=== PATIENT | male | born 1990 | race African-American/Black ===

== ENCOUNTER → 2022-03-02 12:50 | Outpatient (BNVA) | payer OTHER, SELFPAY | PROVIDERS: PCP Podiatrist Foot & Ankle Surgery; Visit Provider Nurse Practitioner Family | DX: S92.11 Fracture of neck of talus (principal); M25.571 Pain in right ankle and joints of right foot; G57.91 Unspecified mononeuropathy of right lower limb | CPT/HCPCS: 99202 ==

== ENCOUNTER → 2022-04-10 14:08 | Outpatient (BNVA) | payer OTHER, SELFPAY | PROVIDERS: PCP Podiatrist Foot & Ankle Surgery; Visit Provider Nurse Practitioner Family | DX: S92.11 Fracture of neck of talus (principal); G57.91 Unspecified mononeuropathy of right lower limb; M25.571 Pain in right ankle and joints of right foot | CPT/HCPCS: 99212 ==

== ENCOUNTER → 2022-06-05 15:03 | Outpatient (BNVA) | payer OTHER, SELFPAY | PROVIDERS: PCP Podiatrist Foot & Ankle Surgery; Visit Provider Nurse Practitioner Family | DX: M25.571 Pain in right ankle and joints of right foot (principal); S92.11 Fracture of neck of talus; G57.91 Unspecified mononeuropathy of right lower limb | CPT/HCPCS: 99212 ==

== ENCOUNTER 2022-06-14 11:25 | Outpatient (REF) | payer OTHER, SELFPAY ==
--- NOTE | 2022-06-14 08:45 | EMG_ITS ---
Right tibial and peroneal motor studies were performed. Right superficial peroneal, sural, and medial and lateral plantar sensory studies were performed. Tibial H-reflex was obtained. Needle examination was performed. 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 There was no definite evidence of radiculopathy. MD GLENYS Kerr/DORIS / [id number]
== END 2022-06-14 11:26 | disposition home or self-care (01) ==
LOC: HO.NEURO 11:25
PROVIDERS: Visit Provider Nurse Practitioner Family
DX: G57.91 Unspecified mononeuropathy of right lower limb (principal); M25.571 Pain in right ankle and joints of right foot
CPT/HCPCS: 95886; 95910

== ENCOUNTER → 2022-06-28 13:27 | Outpatient (BNVA) | payer OTHER, SELFPAY | PROVIDERS: PCP Podiatrist Foot & Ankle Surgery; Visit Provider Nurse Practitioner Family | DX: G57.91 Unspecified mononeuropathy of right lower limb (principal); M25.571 Pain in right ankle and joints of right foot; S92.11 Fracture of neck of talus | CPT/HCPCS: 99212 ==

== ENCOUNTER → 2022-07-27 13:39 | Outpatient (BNVA) | payer OTHER, SELFPAY | PROVIDERS: PCP Podiatrist Foot & Ankle Surgery; Visit Provider Nurse Practitioner Family | DX: Z13.89 Encounter for screening for other disorder (principal) ==

== ENCOUNTER 2022-11-27 09:10 | Outpatient (AMB) | payer OTHER, SELFPAY ==
--- NOTE | 2022-11-27 09:11 | A.OFFVIS_ITS ---
Intake Vital Signs 11/27/22 09:14 Height 6 ft 4 in Weight 208 lb 3 oz BMI 25.3 BP 140/86 H Blood Pressure Location Rt brachial Position Sitting Pulse 88 Pulse Source Pulse Oximeter Pulse Oximetry (%) 97 Oxygen Delivery Method Room Air Intake Visit Reasons: Follow Up/CRPS Intake Note: Pain today 07/13. Senior Research Fellow Required: No Accompanied by: machine molder squeeze Allergies No Known Allergies Allergy (Verified 11/27/22 09:15) HPI HPI Comments History of Present Illness Details Patient presents today for follow up for chronic right ankle pain. Patient reports ongoing sharp pain around his right ankle with walking, weightbearing or stepping down on uneven surfaces. Patient was scheduled to receive cortisone injection at Rheumatology office last month. Unfortunately this was not done due to provider change and was rescheduled for January. We discussed lumbar sympathetic nerve block for diagnostic purposes prior to consideration for SCS trial. Denies any recent cough, cold, infection, fever or other significant changes in medical history since last office visit. PRIOR: Patient presents today via telehealth encounter to follow up for medication review. Patient reports no significant pain relief since restarting gabapentin 100 mg TID. He reports drowsiness with gabapentin during daytime and prefers to continue this during bedtime only. Patient continues to endorse right ankle pain and localized incisional site tenderness with walking, prolonged standing or doing his daily functions and activities. Patient continues to apply topical compound cream with mild relief. Patient is willing to undergo steroidal injection for his right ankle pain through [facility]. If he gains no significant relief with therapeutic injections, we will proceed with neuromodulation with SCS trial for a longer term pain relief. Patient continues to stay active with physical therapy and home exercise program. He has paused PT for previous week due to undergoing vasectomy. Denies any recent cough, cold, infection, fever or other significant changes in medical history since last office visit. PRIOR: Patient is a pleasant 31 years old male who presents with right ankle pain that he attributes to work related injury on 11/21/21 where he had his leg rolled over by a skid steer tractor and have undergone right foot and ankle surgery for closed nondisplaced fracture of neck of right talus and continues to present with symptoms of injury sequelae. 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 Subsequent MRI was concerning for necrosis of the talus performed early last year with foot and ankle surgeon in [place]. After his decompression surgery of the ankle joint, the patient reports he was immobile for 3 months. Patient recently moved to [place] and has been followed by podiatry surgeon, Dr. Dang who referred patient to our office for potential treatment of complex regional pain syndrome. Per referral notes, most recent MRI study findings showed no signs of avascular necrosis, no acute fracture and mild thinning of tibiotalar articulating cartilage. Full MRI report is not available for review today. We will send a request for a complete MRI report to evaluate for any tissue changes typical of CRPS. Patient denies any fever, weight changes, joint swelling, muscle pain, back pain, rash, itching, skin color changes, hyperalgesia, bowel or bladder incontinence, or saddle anesthesia. Patient reports his right ankle pain is reproducible with weight bearing and cold weather changes. He rates his average pain at 3-4/10. Pain is described as intermittent aching, stabbing, sharp, tingling, pins and needles, shooting and dullness. He presents with localized pain, numbness and tingling upon weight bearing or prolonged standing in the projection of medial malleolus and talus. Patient reports RLE weakness and severe pain with prolonged walking with occasional tripping and falling. Pain relieved with rest and elevation. Patient has intact pulses and capillary refills bilaterally, no edema. Denies skin color or texture changes, sweating of right ankle or foot, stiffness, localized hyperalgesia or allodynia. No temperature differences between bilateral lower extremities. Patient demonstrates 5/5 strength of quadriceps bilaterally as well as flexion/dorsiflexion of bilateral feet against resistance with mild decreased ROM of right ankle with dorsiflexion. No redness or tenderness noted in the projection of the healed scar and its surrounding area. Patient reports pain has been affecting his daily activities, walking, social interactions and quality of life. Denies difficulty sleeping or maintaining sleep. Patient reports PT was helpful while living in [place] and more recently he has been using compound topical cream with partial relief of pain. Patient denies previous cortisone injections, Tylenol, NSAIDs, TENS unit or orthotics. He reports a past history of opioid addiction and avoids taking oral medications for this reason. Patient is wearing tight fitting pro keds style shoes of his regular size in both feet. Ambulates with mildly antalgic gait with slight limping without assistive devices. Patient reports he remains out of work due to significant pain with weight bearing. He does not drive due to chronic right ankle pain and weakness with dorsiflexion. [facility] Medical History Closed nondisplaced fracture of neck of talus Right ankle pain Social History Alcohol intake: never Patient Tobacco Use Status: Never used Tobacco Review of Systems Const All systems reviewed & are unremarkable except as noted in HPI and below Physical Exam General: Appears afebrile. Alert and oriented. Mood and affect appropriate. Follows and participates in conversation appropriately. Respiratory effort is unlabored. Able to transition from sit to stand unassisted. Ambulates with bilaterally normal heel strike and toe off, except decreased dorsiflexion on right. Right foot: Full ROM with pain in pronation and supination, decreased dorsiflexion on the right. Intact pulses and capillary refills bilaterally, no edema, no redness, no swelling. Localized tenderness on palpation in the medial aspect of right ankle. 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 Continue home exercise program for maintaining ROM, flexibility, strength and decreasing pain and stiffness. 2. Pending cortisone injection at Rheumatology office in January for chronic right ankle pain. If patient gains no significant relief with therapeutic injections, we will proceed with Lumbar Sympathetic block for consideration of SCS trial for a longer term pain relief. 3. Provided excuse from work while he awaits trial of therapeutic injections at Rheumatology.?All questions were answered and patient agreed with the plan. Follow up after injections and sooner if needed. 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
[2022-11-27 09:14] VITALS: BP 140/86; PULSE 88; O2SAT 97; BMI 25.3
== END 2022-11-27 09:20 | disposition home or self-care (01) ==
PROVIDERS: PCP Podiatrist Foot & Ankle Surgery; Visit Provider Nurse Practitioner Family
DX: M25.571 Pain in right ankle and joints of right foot (principal); G57.91 Unspecified mononeuropathy of right lower limb; S92.11 Fracture of neck of talus
CPT/HCPCS: 99214

== ENCOUNTER → 2022-11-27 09:10 | Outpatient (BNVA) | payer OTHER, SELFPAY | PROVIDERS: PCP Podiatrist Foot & Ankle Surgery; Visit Provider Nurse Practitioner Family | DX: M25.571 Pain in right ankle and joints of right foot (principal); G57.91 Unspecified mononeuropathy of right lower limb | CPT/HCPCS: 99212 ==

== ENCOUNTER → 2023-01-22 08:01 | Outpatient (BNVA) | payer OTHER, SELFPAY | PROVIDERS: Visit Provider Student in an Organized Health Care Education/Training Program ==

== ENCOUNTER → 2023-01-24 09:53 | Outpatient (BNVA) | payer OTHER, SELFPAY | PROVIDERS: PCP Podiatrist Foot & Ankle Surgery; Visit Provider Nurse Practitioner Family ==

== ENCOUNTER 2023-02-21 08:04 | Outpatient (AMB) | payer OTHER, SELFPAY ==
--- NOTE | 2023-02-21 08:04 | MHC.OFFVIS ---
Intake Vital Signs 02/21/23 08:05 Height 6 ft 4 in Weight 236 lb 12.423 oz BMI 28.8 BP 124/90 H Blood Pressure Location Lt brachial Position Sitting Pulse 105 H Pulse Source Pulse Oximeter Temp 97.4 F Temp Source Skin Pulse Oximetry (%) 99 Oxygen Delivery Method Room Air Intake Visit Reasons: Rt Ankle Pain/injection Intake Note: New patient here today for right ankle pain and injection. Workers comp case. Master Automotive Glass Technician Required: No Accompanied by: and Nurse Allergies No Known Allergies Allergy (Verified 02/21/23 08:08) HPI HPI Comments History of Present Illness Details Patient presents for injection of the right ankle. He has pains in the ankle and foot thought to be due to her complex regional pain disorder. This followed a injury about 2 years ago. Imaging has shown some evidence for some osteoarthritis. He has had no previous corticosteroid injections or previous exposure to corticosteroids. [facility] Medical History (Updated 02/21/23 @ 08:55 by Chris Mckeon MD) Right ankle pain Closed nondisplaced fracture of neck of talus Surgical History History of ankle surgery History of surgery Family History (Updated 02/21/23 @ 08:08 by SALMA Snow) Mother No problems noted. Father Prostate cancer Heart disease Social History Household Members: Spouse and Children Alcohol intake: current Alcohol intake frequency: holidays/special occasions only Patient Tobacco Use Status: Never used Tobacco Current occupational status: unemployed Review of Systems Const Details: Negative for appetite change, weight change, fever, chills, malaise and fatigue Skin/Breast Details: Negative for itching, rash, hives, Raynaud's symptoms, sun sensitivity, and skin cancer Endo Details: Negative for polyuria and polydypsia Javon/Lymph Details: Negative for excessive bruising or bleeding. Physical Exam Vital Signs: Last Vital Signs Temp 97.4 F 02/21/23 08:05 Pulse 105 H 02/21/23 08:05 BP 124/90 H 02/21/23 08:05 Pulse Ox 99 02/21/23 08:05 Oxygen Delivery Method Room Air 02/21/23 08:05 BMI result Body Mass Index 28.8 APPEARANCE: Patient in no acute distress Right foot and ankle: No pain with range of motion. Slight anterior tenderness. No bruising or redness. ? Office Procedures Joint Injection/Drain Joint Injection/Drain Primary Site: right ankle Injected: 40 mg of, Kenalog, with 1 mL of and 1% plain lidocaine Coding Details: With the patient's consent the right ankle was prepped with ChloraPrep and alcohol. The skin over the anterior ankle was sprayed with ethyl chloride and the soft tissues were anesthetized with 2 cc of 1% lidocaine. The right ankle was then injected via an anterior approach with 40 mg of triamcinolone and 1 cc of I % lidocaine. The patient tolerated the procedure with no immediate adverse effects. - Large joint Procedure code (CPT) selection complete Assessment & Plan Assessment & Plan (1) Osteoarthritis of ankle, right: Code(s): M19.071 - Primary osteoarthritis, right ankle and foot Qualifiers: Osteoarthritis type: post-traumatic Qualified Code(s): M19.171 - Post-traumatic osteoarthritis, right ankle and foot Plan With the patient's consent the right ankle was prepped with ChloraPrep and alcohol. The skin over the anterior ankle was sprayed with ethyl chloride and the soft tissues were anesthetized with 2 cc of 1% lidocaine. The right ankle was then injected via an anterior approach with 40 mg of triamcinolone and 1 cc of I % lidocaine. The patient tolerated the procedure with no immediate adverse effects. He should rest the ankle for the next 48 hours. Any excess symptoms can be managed with topical ice to the area. He will follow-up as planned with pain management. Orders: Orders AMB Joint Injection/Aspiration Today M19.071 - Primary osteoarthritis, right ankle and foot Coding Level of Care Code Procedure Only Diagnoses Post-traumatic osteoarthritis of right ankle M19.171 Osteoarthritis type: post-traumatic CPT Codes Coding - Large joint: 88188 - Large joint ([id number])
[2023-02-21 08:05] VITALS: BP 124/90; PULSE 105; TEMP 36.3; O2SAT 99; BMI 28.8
== END 2023-02-21 08:31 | disposition home or self-care (01) ==
PROVIDERS: PCP Podiatrist Foot & Ankle Surgery; Visit Provider Internal Medicine Rheumatology
DX: M19.171 Post-traumatic osteoarthritis, right ankle and foot (principal)
CPT/HCPCS: 20605

== ENCOUNTER → 2023-02-21 08:04 | Outpatient (BNVA) | payer OTHER, SELFPAY | PROVIDERS: PCP Podiatrist Foot & Ankle Surgery; Visit Provider Internal Medicine Rheumatology | DX: M19.171 Post-traumatic osteoarthritis, right ankle and foot (principal) | CPT/HCPCS: 20605; J3301 ==

== ENCOUNTER 2023-03-22 09:02 | Outpatient (AMB) | payer OTHER, SELFPAY ==
--- NOTE | 2023-03-22 09:04 | A.OFFVIS_ITS ---
Intake Vital Signs 3 03/22/23 09:07 Height 6 ft 4 in Weight 237 lb BMI 28.8 BP 142/86 H Blood Pressure Location Rt brachial Position Sitting Pulse 95 Pulse Source Pulse Oximeter Pulse Oximetry (%) 97 Oxygen Delivery Method Room Air Intake Visit Reasons: 4 WEEK FOLLOW UP AFTER ANKLE INJ/CONFIRMED Intake Note: Pain today 07/13 On Air Talent Required: No Accompanied by: Self / Same As Patient Allergies No Known Allergies Allergy (Verified 03/22/23 09:08) HPI HPI Comments 2 History of Present Illness0 Details Patient presents today for follow up status post therapeutic right ankle pain. Patient received 40 mg of triamcinolone and 1 cc of 1% lidocaine on 02/21/23 at Rheumatology office. Patient reports no pain relief since injection. He continues to report sharp and throbbing pain around his right ankle with walking and weight bearing. He occasionally gets tingling sensations in right ankle and has tried gabapentin but this caused him significant drowsiness on a 100 mg TID dose and even tried only 100 mg at bedtime with continued drowsiness. Physical therapy improved his range of motion but not pain symptoms. He continues to endorse more neuropathic than arthritic pain. 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 Denies any recent cough, cold, infection, fever or other significant changes in medical history since last office visit. Past Procedures: 02/21/23: Right ankle steroid injection- 0% pain relief PRIOR: Patient is a pleasant 31 years old male who presents with right ankle pain that he attributes to work related injury on 11/21/21 where he had his leg rolled over by a skid steer tractor and have undergone right foot and ankle surgery for closed nondisplaced fracture of neck of right talus and continues to present with symptoms of injury sequelae. This is Workers Comp case #[id number] and patient presents with his case management social worker Irena Wright from [employer] phone fax . Subsequent MRI was concerning for necrosis of the talus performed early last year with foot and ankle surgeon in [place]. After his decompression surgery of the ankle joint, the patient reports he was immobile for 3 months. Patient recently moved to [place] and has been followed by podiatry surgeon, Dr. Dang who referred patient to our office for potential treatment of complex regional pain syndrome. Per referral notes, most recent MRI study findings showed no signs of avascular necrosis, no acute fracture and mild thinning of tibiotalar articulating cartilage. Full MRI report is not available for review today. We will send a request for a complete MRI report to evaluate for any tissue changes typical of CRPS. Patient denies any fever, weight changes, joint swelling, muscle pain, back pain, rash, itching, skin color changes, hyperalgesia, bowel or bladder incontinence, or saddle anesthesia. Patient reports his right ankle pain is reproducible with weight bearing and cold weather changes. He rates his average pain at 3-4/10. Pain is described as intermittent aching, stabbing, sharp, tingling, pins and needles, shooting and dullness. He presents with localized pain, numbness and tingling upon weight bearing or prolonged standing in the projection of medial malleolus and talus. Patient reports RLE weakness and severe pain with prolonged walking with occasional tripping and falling. Pain relieved with rest and elevation. Patient has intact pulses and capillary refills bilaterally, no edema. Denies skin color or texture changes, sweating of right ankle or foot, stiffness, localized hyperalgesia or allodynia. No temperature differences between bilateral lower extremities. Patient demonstrates 5/5 strength of quadriceps bilaterally as well as flexion/dorsiflexion of bilateral feet against resistance with mild decreased ROM of right ankle with dorsiflexion. No redness or tenderness noted in the projection of the healed scar and its surrounding area. Patient reports pain has been affecting his daily activities, walking, social interactions and quality of life. Denies difficulty sleeping or maintaining sleep. Patient reports PT was helpful while living in [place] and more recently he has been using compound topical cream with partial relief of pain. Patient denies previous cortisone injections, Tylenol, NSAIDs, TENS unit or orthotics. He reports a past history of opioid addiction and avoids taking oral medications for this reason. Patient is wearing tight fitting pro keds style shoes of his regular size in both feet. Ambulates with mildly antalgic gait with slight limping without assistive devices. Patient reports he remains out of work due to significant pain with weight bearing. He does not drive due to chronic right ankle pain and weakness with dorsiflexion. [facility] Medical History Right ankle pain Closed nondisplaced fracture of neck of talus Surgical History History of ankle surgery History of surgery Family History Mother No problems noted. Father Prostate cancer Heart disease Social History Household Members: Spouse and Children Alcohol intake: current Alcohol intake frequency: holidays/special occasions only Patient Tobacco Use Status: Never used Tobacco Current occupational status: unemployed Review of Systems Const All systems reviewed & are unremarkable except as noted in HPI and below Physical Exam Vital Signs: Last Vital Signs Pulse 95 03/22/23 09:07 BP 142/86 H 03/22/23 09:07 Pulse Ox 97 03/22/23 09:07 Oxygen Delivery Method Room Air 03/22/23 09:07 BMI result Body Mass Index 28.8 General: Appears afebrile. Alert and oriented. Mood and affect appropriate. Follows and participates in conversation appropriately. Respiratory effort is unlabored. Able to transition from sit to stand unassisted. Ambulates with bilaterally normal heel strike and toe off, except decreased dorsiflexion on right. Right foot: Full ROM with mild pain in pronation and supination, decreased dorsiflexion on the right. Intact pulses and capillary refills bilaterally, no edema, no redness, no swelling, no skin color changes. Localized tenderness and mild allodynia on palpation in the medial and anterior aspect of right ankle. Results Reviewed Results Reviewed: IMPRESSION: This study revealed mild sensory motor peripheral neuropathy with no particular separate pathology around ankle. There was no definite evidence of radiculopathy. Assessment & Plan Assessment & Plan (1) Right ankle pain: Code(s): M25.571 - Pain in right ankle and joints of right foot Qualifiers: Chronicity: chronic Qualified Code(s): M25.571 - Pain in right ankle and joints of right foot; G89.29 - Other chronic pain (2) Neuropathy of right lower extremity: Code(s): G57.91 - Unspecified mononeuropathy of right lower limb (3) Osteoarthritis of ankle, right: Code(s): M19.071 - Primary osteoarthritis, right ankle and foot Qualifiers: Osteoarthritis type: post-traumatic Qualified Code(s): M19.171 - Post- traumatic osteoarthritis, right ankle and foot Plan Patient is status post right ankle steroid injection on 02/21/23 with no pain relief. He is continuing home exercise program to maintain ROM, flexibility, strength and decreasing pain and stiffness which provides him partial symptoms relief. Patient is eager to get back to work but concerned with ongoing neuropathic right ankle pain with walking, weight bearing or driving. At this time, patient has not reached maximum medical improvement. He is interested to undergo Right Sciatic nerve Sprint PNS trial with local and US guidance provide sustained relief from chronic pain. Expectations, risks and benefits were reviewed. Patient is aware he will be contacted to schedule this procedure. All questions were answered and patient agreed with the plan. Follow up after procedure and sooner if needed. Coding Level of Care Code Est Pt Level 4 (82732) Diagnoses Chronic pain of right ankle M25.571; G89.29 Chronicity: chronic Neuropathy of right lower extremity G57.91 Post-traumatic osteoarthritis of right ankle M19.171 Osteoarthritis type: post-traumatic
[2023-03-22 09:07] VITALS: BP 142/86; PULSE 95; O2SAT 97; BMI 28.8
== END 2023-03-22 09:43 | disposition home or self-care (01) ==
PROVIDERS: PCP Podiatrist Foot & Ankle Surgery; Visit Provider Nurse Practitioner Family
DX: M25.571 Pain in right ankle and joints of right foot (principal); G89.29 Other chronic pain; G57.91 Unspecified mononeuropathy of right lower limb; M19.171 Post-traumatic osteoarthritis, right ankle and foot
CPT/HCPCS: 99214

== ENCOUNTER → 2023-03-22 09:02 | Outpatient (BNVA) | payer OTHER, SELFPAY | PROVIDERS: PCP Podiatrist Foot & Ankle Surgery; Visit Provider Nurse Practitioner Family | DX: M25.571 Pain in right ankle and joints of right foot (principal); G89.29 Other chronic pain; G57.91 Unspecified mononeuropathy of right lower limb; M19.171 Post-traumatic osteoarthritis, right ankle and foot | CPT/HCPCS: 99212 ==

== ENCOUNTER 2023-05-01 09:43 | Day surgery (SDC) | payer OTHER, SELFPAY ==
[2023-05-01 10:17] VITALS: BMI 29.5
--- NOTE | 2023-05-01 11:30 | P.BOP_ITS ---
Brief Operative Note Date of Service: 05/01/23 Pre-op diagnosis: Intractable right ankle pain, postsurgical right ankle pain Post-op diagnosis: same Procedure: Temporary nerve stimulator placement, tibial branch of the sciatic nerve Implants: Sprint temporary PNS system Surgeon: Rene Colby MD Anesthesia: local Was an Master Data Analyst used for this Procedure?: No Estimated blood loss (mL): 2 Pathology: none sent Condition: stable Disposition: same day
--- NOTE | 2023-05-01 11:30 | MHC.SHP ---
Pre-Procedural Eval Section A Date of Service: 05/01/23 The patient is an INPATIENT: No Changes since office visit: Yes Patient answered all questions The History & Physical has been completed within 30 days and I have reviewed it.: No Section B Chief Complaint: Intractable right ankle pain Relevant Family History (Specify if Yes): Yes Relevant Social History: Other (specify) Present Medications: see Short Stay Collaborative assessment Medical History: No relevant PMH History of Previous Operations: No relevant previous surgery Allergies: Allergies Allergy/AdvReac Type Severity Reaction Status Date / Time No Known Allergies Allergy Verified 05/01/23 10:19 Review of Systems Sugical H&P ROS: Negative: Constitution, Cardiovascular and Respiratory Exam Surgical H&P Exam: Normal: HEENT, Normal: Heart and Normal: Lungs Plan Diagnosis/Plan: Unchanged I have reviewed the history and physical and performed a pertinent physical examination on my patient. No changes have occurred unless specified. Time Spent With Patient Time: Total time managing care of this patient today ____ minutes.
--- NOTE | 2023-05-01 11:35 | W.PM.OPN ---
Operative Note Operative Note Date of Service: 05/01/23 Narrative: Peripheral Nerve Stimulation Temporary Lead Placement, Ultrasound-Guided, Sciatic Nerve, Right ? After the risks, benefits and alternatives were discussed with the patient and informed consentwas obtained, patient was placed in the lateral position and padded to foster comfort. Appropriate skin and bony landmarks were identified, and pertinent vascular structures were located. The skin overlying the needle entry site was prepped and draped in sterile fashion. Ultrasound was used to identify the popliteal artery and the sciatic nerve. After identifying and marking the intended target along the course of the tibial segment of the sciatic nerve, the skin around the planned entry point and the subcutaneous tissues were injected with local anesthetic. An introducer needle and stimulating probe were assembled, inserted and advanced along the intended course of the tibial segment, taking care to maintain the proper depth of insertion as the introducer was advanced under ultrasound guidance. The introducer needle was delivered to a location in proximity to the tibial segment of the sciatic nerve taking care not to puncture the popliteal artery or the vein. Multiple stimulation parameters were used to deliver stimulation to the tibial nerve in concert with stimulating at multiple positions around the nerve. Nerve target acquisition was confirmed noting generation of sensory effects (paresthesia, muscle tension, etc) in the lateral knee, calf and ankle; corresponding to the distribution of the tibial nerve. Various electrical parameter combinations were tested, and the lead location was adjusted (physically relocated under ultrasound guidance) until the patient indicated lateral leg paresthesia and tension overlapping the distribution of the patient?s typical region of pain. The stimulating probe was removed from the introducer and a percutaneous lead was guided through the needle and delivered to a location in similar proximity to the nerve. Final location was verified with electrical stimulation and documented. The introducer needle was removed, and the exposed end of the percutaneous lead was attached to an external stimulator unit. Various electrical parameter combinations were again tested until the patient indicated paresthesia and muscle tension overlapping the distribution of the patient?s typical region of pain. After confirming that lead impedance was in the normal range, the external unit was detached, the needle was removed, and the lead was anchored at the skin. The lead was threaded into the connector block and electrical continuity and desired patient response was confirmed. The connector block was attached to the external stimulator unit. The site was covered with a sterile occlusive dressing. A final ultrasound image was taken to document final placement. The patient was observed for stability of vital signs and comfort.
[2023-05-01 12:25] VITALS: BP 130/93; PULSE 86; RESP 20; TEMP 36.7; O2SAT 95
== END 2023-05-01 12:56 | disposition home or self-care (01) ==
PROVIDERS: Visit Provider Internal Medicine
PROC: (CPT 64555; principal; 2023-05-01 11:10)
DX: M25.571 Pain in right ankle and joints of right foot (principal); G89.28 Other chronic postprocedural pain; G57.91 Unspecified mononeuropathy of right lower limb; M19.071 Primary osteoarthritis, right ankle and foot
CPT/HCPCS: 64555; C1778

== ENCOUNTER → 2023-05-01 09:43 | Outpatient (BNV) | payer OTHER, SELFPAY | PROVIDERS: Visit Provider Internal Medicine | DX: M25.571 Pain in right ankle and joints of right foot (principal) | CPT/HCPCS: 64555 ==

== ENCOUNTER 2023-05-07 13:49 | Outpatient (AMB) | payer OTHER, SELFPAY ==
--- NOTE | 2023-05-07 13:53 | A.OFFVIS_ITS ---
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 Accompanied by: Spouse Allergies No Known Allergies Allergy (Verified 05/07/23 14:01) Medication List - Last Reconciled 05/07/23 by Karon Rodriguez LPN albuterol sulfate 90 mcg/actuation (Ventolin HFA) inhalation atomoxetine 80 mg PO DAILY bupropion HCl 150 mg PO DAILY cariprazine (Vraylar) 1.5 mg PO DAILY docusate sodium 100 mg PO BID hydrocortisone 2.5% appl topical lamotrigine 50 mg PO DAILY Do you need a note to return to daycare/school/sports/work: Yes HPI HPI Comments 2 History of Present Illness0 Details Patient presents today one week status post Right Sciatic Nerve Sprint temporary lead placement on 05/01/[address] Colby. Patient reports minimal pain relief since procedure and no significant improvement in his daily activities and functioning, mobility, social interactions and sleep. Patient reports positive paresthesia in his right ankle area at 90-94 stimulation only with right knee extension but able to feel paresthesia in his right thigh in any position. He is also reports positive paresthesia in right lower leg and foot with knee flexion with increasing his stimulation to 100. Patient has reached out to [employer] rep yesterday and will continue to monitor his stimulation settings and pain relief for another week before any other adjustments. The dressing was removed today. Leads insertion sites look clean, dry, intact, no redness, no swelling, no pathological discharge. Area was cleansed with Chloraprep and covered it Sprint gauze and tegaderm film dressing. Positive paresthesia at 90-94 stimulation at right ankle with right knee extension. Denies any recent cough, cold, infection, fever or other significant changes in medical history since last office visit. Past Procedures: 05/01/23: Right sciatic nerve Sprint PNS lead placement-minimal pain relief 02/21/23: Right ankle steroid injection- 0% pain relief PRIOR: Patient is a pleasant 31 years old male who presents with right ankle pain that he attributes to work related injury on 11/21/21 where he had his leg rolled over by a skid steer tractor and have undergone right foot and ankle surgery for closed nondisplaced fracture of neck of right talus and continues to present with symptoms of injury sequelae. This is Workers [facility] case #[id number] and patient presents with his case managers Irena Wright from [employer] services phone fax . Subsequent MRI was concerning for necrosis of the talus performed early last year with foot and ankle surgeon in [place]. After his decompression surgery of the ankle joint, the patient reports he was immobile for 3 months. Patient recently moved to [place] and has been followed by podiatry surgeon, Dr. Dang who referred patient to our office for potential treatment of complex regional pain syndrome. Per referral notes, most recent MRI study findings showed no signs of avascular necrosis, no acute fracture and mild thinning of tibiotalar articulating cartilage. Full MRI report is not available for review today. We will send a request for a complete MRI report to evaluate for any tissue changes typical of CRPS. Patient denies any fever, weight changes, joint swelling, muscle pain, back pain, rash, itching, skin color changes, hyperalgesia, bowel or bladder incontinence, or saddle anesthesia. Patient reports his right ankle pain is reproducible with weight bearing and cold weather changes. He rates his average pain at 3-4/10. Pain is described as intermittent aching, stabbing, sharp, tingling, pins and needles, shooting and dullness. He presents with localized pain, numbness and tingling upon weight bearing or prolonged standing in the projection of medial malleolus and talus. Patient reports RLE weakness and severe pain with prolonged walking with occasional tripping and falling. Pain relieved with rest and elevation. Patient has intact pulses and capillary refills bilaterally, no edema. Denies skin color or texture changes, sweating of right ankle or foot, stiffness, localized hyperalgesia or allodynia. No temperature differences between bilateral lower extremities. Patient demonstrates 5/5 strength of quadriceps bilaterally as well as flexion/dorsiflexion of bilateral feet against resistance with mild decreased ROM of right ankle with dorsiflexion. No redness or tenderness noted in the projection of the healed scar and its surrounding area. Patient reports pain has been affecting his daily activities, walking, social interactions and quality of life. Denies difficulty sleeping or maintaining sleep. Patient reports PT was helpful while living in [place] and more recently he has been using compound topical cream with partial relief of pain. Patient denies previous cortisone injections, Tylenol, NSAIDs, TENS unit or orthotics. He reports a past history of opioid addiction and avoids taking oral medications for this reason. Patient is wearing tight fitting pro keds style shoes of his regular size in both feet. Ambulates with mildly antalgic gait with slight limping without assistive devices. Patient reports he remains out of work due to significant pain with weight bearing. He does not drive due to chronic right ankle pain and weakness with dorsiflexion. [facility] Medical History Bipolar 2 disorder ADHD Right ankle pain Closed nondisplaced fracture of neck of talus Surgical History History of ankle surgery History of surgery Family History Mother No problems noted. Father Prostate cancer Heart disease Social History Household Members: Spouse and Children Alcohol intake: current Alcohol intake frequency: holidays/special occasions only Patient Tobacco Use Status: Never used Tobacco Current occupational status: unemployed Review of Systems Const All systems reviewed & are unremarkable except as noted in HPI and below Physical Exam Vital Signs: Last Vital Signs Pulse 95 05/07/23 13:59 Resp 12 05/07/23 13:59 Pulse Ox 96 05/07/23 13:59 Oxygen Delivery Method Room Air 05/07/23 13:59 BMI result Body Mass Index 29.1 General: Appears afebrile. Alert and oriented. Mood and affect appropriate. Follows and participates in conversation appropriately. Respiratory effort is unlabored. Able to transition from sit to stand unassisted. Ambulates with bilaterally normal heel strike and toe off, except decreased dorsiflexion on right. Lead Insertion Site: Lead insertion sites look clean, dry, intact. No pathological discharge, no swelling, no redness and no erythema. Positive paresthesia at right ankle at 90-94 with right knee extension. 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 There was no definite evidence of radiculopathy. Assessment & Plan Assessment & Plan (1) Right ankle pain: Code(s): M25.571 - Pain in right ankle and joints of right foot Qualifiers: Chronicity: chronic Qualified Code(s): M25.571 - Pain in right ankle and joints of right foot; G89.29 - Other chronic pain (2) Neuropathy of right lower extremity: Code(s): G57.91 - Unspecified mononeuropathy of right lower limb (3) Osteoarthritis of ankle, right: Code(s): M19.071 - Primary osteoarthritis, right ankle and foot Qualifiers: Osteoarthritis type: post-traumatic Qualified Code(s): M19.171 - Post- traumatic osteoarthritis, right ankle and foot Plan Patient is status post right sciatic nerve Sprint PNS lead placement on 05/01/23 with minimal improvement at highest stimulation setting and position dependent paresthesia. Patient will continue to monitor his pain levels and adjust his device settings as needed for another week. Dressing change was done in office today and his family was able to see dressing change and care for the device. Patient is aware dressing changes can be scheduled through our clinic or by his spouse at home. 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 All questions were answered and patient agreed with the plan. Follow up for Sprint removal and sooner as needed. Coding Level of Care Code Est Pt Level 3 (48818) Diagnoses Chronic pain of right ankle M25.571; G89.29 Chronicity: chronic Neuropathy of right lower extremity G57.91 Post-traumatic osteoarthritis of right ankle M19.171 Osteoarthritis type: post-traumatic
[2023-05-07 13:59] VITALS: PULSE 95; RESP 12; O2SAT 96; BMI 29.1
== END 2023-05-07 14:25 | disposition home or self-care (01) ==
PROVIDERS: PCP Podiatrist Foot & Ankle Surgery; Visit Provider Nurse Practitioner Family
DX: M25.571 Pain in right ankle and joints of right foot (principal); G89.29 Other chronic pain; G57.91 Unspecified mononeuropathy of right lower limb; M19.171 Post-traumatic osteoarthritis, right ankle and foot
CPT/HCPCS: 99024

== ENCOUNTER → 2023-05-07 13:49 | Outpatient (BNVA) | payer OTHER, SELFPAY | PROVIDERS: PCP Podiatrist Foot & Ankle Surgery; Visit Provider Nurse Practitioner Family | DX: G89.29 Other chronic pain (principal); M25.571 Pain in right ankle and joints of right foot; G57.91 Unspecified mononeuropathy of right lower limb; M19.171 Post-traumatic osteoarthritis, right ankle and foot; T14.90XS Injury, unspecified, sequela; Z98.890 Other specified postprocedural states | CPT/HCPCS: 99212 ==

== ENCOUNTER → 2023-06-04 10:28 | Outpatient (BNVA) | payer OTHER, SELFPAY | PROVIDERS: PCP Podiatrist Foot & Ankle Surgery; Visit Provider Internal Medicine ==

== ENCOUNTER 2023-06-27 12:47 | Outpatient (AMB) | payer OTHER, SELFPAY ==
--- NOTE | 2023-06-27 13:01 | A.OFFVIS_ITS ---
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 Patient reports minimal to no pain relief since procedure especially for the past one month when he noticed that lead was partially pulled out. He met with [employer] rep in office last month and via phone several times. Patient reports no significant improvement in his daily activities and functioning, mobility, social interactions and sleep despite several adjustments. Patient did not notify our office when he notice lead was partially pulled out. We discussed Sprint Revision today to obtain intended coverage for his chronic right ankle pain. Patient will review this with his family and notify our office of his decision. He is looking to return to work and also considers to undergo functional capacity assessment. Denies any recent cough, cold, infection, fever or other significant changes in medical history since last office visit. The dressing was removed today. Leads insertion sites look clean, dry, intact, no redness, no swelling, no pathological discharge. The lead appears to be partially pulled out. Area was cleansed with Chloraprep, lead pulled with tip intact. Area was cleansed again with Chloraprep, applied Bacitracin and dry sterile dressing. Past Procedures: 06/27/23: Right sciatic nerve Sprint rem oval-minimal to no pain relief 05/01/23: Right sciatic nerve Sprint PNS lead placement-minimal pain relief 02/21/23: Right ankle steroid injection- 0% pain relief PRIOR: Patient is a pleasant 31 years old male who presents with right ankle pain that he attributes to work related injury on 11/21/21 where he had his leg rolled over by a skid steer tractor and have undergone right foot and ankle surgery for closed nondisplaced fracture of neck of right talus and continues to present with symptoms of injury sequelae. This is Workers Comp case #[id number] and patient presents with his director of casework department Irena Wright from [employer] phone fax . 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 After his decompression surgery of the ankle joint, the patient reports he was immobile for 3 months. Patient recently moved to [place] and has been followed by podiatry surgeon, Dr. Dang who referred patient to our office for potential treatment of complex regional pain syndrome. Per referral notes, most recent MRI study findings showed no signs of avascular necrosis, no acute fracture and mild thinning of tibiotalar articulating cartilage. Full MRI report is not available for review today. We will send a request for a complete MRI report to evaluate for any tissue changes typical of CRPS. Patient denies any fever, weight changes, joint swelling, muscle pain, back pain, rash, itching, skin color changes, hyperalgesia, bowel or bladder incontinence, or saddle anesthesia. Patient reports his right ankle pain is reproducible with weight bearing and cold weather changes. He rates his average pain at 3-4/10. Pain is described as intermittent aching, stabbing, sharp, tingling, pins and needles, shooting and dullness. He presents with localized pain, numbness and tingling upon weight bearing or prolonged standing in the projection of medial malleolus and talus. Patient reports RLE weakness and severe pain with prolonged walking with occasional tripping and falling. Pain relieved with rest and elevation. Patient has intact pulses and capillary refills bilaterally, no edema. Denies skin color or texture changes, sweating of right ankle or foot, stiffness, localized hyperalgesia or allodynia. No temperature differences between bilateral lower extremities. Patient demonstrates 5/5 strength of quadriceps bilaterally as well as flexion/dorsiflexion of bilateral feet against resistance with mild decreased ROM of right ankle with dorsiflexion. No redness or tenderness noted in the projection of the healed scar and its surrounding area. Patient reports pain has been affecting his daily activities, walking, social interactions and quality of life. Denies difficulty sleeping or maintaining sleep. Patient reports PT was helpful while living in [place] and more recently he has been using compound topical cream with partial relief of pain. Patient denies previous cortisone injections, Tylenol, NSAIDs, TENS unit or orthotics. He reports a past history of opioid addiction and avoids taking oral medications for this reason. Patient is wearing tight fitting pro keds style shoes of his regular size in both feet. Ambulates with mildly antalgic gait with slight limping without assistive devices. Patient reports he remains out of work due to significant pain with weight bearing. He does not drive due to chronic right ankle pain and weakness with dorsiflexion. [facility] Medical History Bipolar 2 disorder ADHD Right ankle pain Closed nondisplaced fracture of neck of talus Surgical History History of ankle surgery History of surgery Family History Mother No problems noted. Father Prostate cancer Heart disease Social History Household Members: Spouse and Children Alcohol intake: current Alcohol intake frequency: holidays/special occasions only Patient Tobacco Use Status: Never used Tobacco Current occupational status: unemployed Review of Systems Const All systems reviewed & are unremarkable except as noted in HPI and below Physical Exam General: Appears afebrile. Alert and oriented. Mood and affect appropriate. Follows and participates in conversation appropriately. Respiratory effort is unlabored. Able to transition from sit to stand unassisted. Ambulates with bilaterally normal heel strike and toe off, except decreased dorsiflexion on right. Lead Insertion Site: Lead insertion site looks clean, dry, intact. Lead pulled with tip intact. Extrem General: Yes full ROM, Yes capillary refill normal, Yes no clubbing, cyanosis or edema and Yes no calf tenderness Results Reviewed Results Reviewed: No imaging results are available for review. Assessment & Plan Assessment & Plan (1) Right ankle pain: Code(s): M25.571 - Pain in right ankle and joints of right foot Qualifiers: Chronicity: chronic Qualified Code(s): M25.571 - Pain in right ankle and joints of right foot; G89.29 - Other chronic pain (2) Neuropathy of right lower extremity: Code(s): G57.91 - Unspecified mononeuropathy of right lower limb (3) Osteoarthritis of ankle, right: Code(s): M19.071 - Primary osteoarthritis, right ankle and foot Qualifiers: Osteoarthritis type: post-traumatic Qualified Code(s): M19.171 - Post- traumatic osteoarthritis, right ankle and foot Plan Right sciatic nerve Sprint removed with lead tip intact. The lead was partially pulled out upon dressing removal. Patient reports he noticed it was pulled out about a month ago. Discussed Sprint Revision with patient and family today. Patient will notify our office with his decision. Patient is also looking into return back to work and considers to undergo functional capacity assessment. Work note provided to patient and his Worker's comp case-manager banquet today. All questions were answered and patient agreed with the plan. Follow up as needed. Coding Level of Care Code Est Pt Level 3 (47610) Diagnoses Chronic pain of right ankle M25.571; G89.29 Chronicity: chronic Neuropathy of right lower extremity G57.91 Post-traumatic osteoarthritis of right ankle M19.171 Osteoarthritis type: post-traumatic
[2023-06-27 13:09] VITALS: BP 141/106; PULSE 105; O2SAT 99; BMI 28.0
== END 2023-06-27 13:36 | disposition home or self-care (01) ==
PROVIDERS: PCP Podiatrist Foot & Ankle Surgery; Visit Provider Nurse Practitioner Family
DX: M25.571 Pain in right ankle and joints of right foot (principal); G89.29 Other chronic pain; G57.91 Unspecified mononeuropathy of right lower limb; M19.171 Post-traumatic osteoarthritis, right ankle and foot
CPT/HCPCS: 99213

== ENCOUNTER → 2023-06-27 12:47 | Outpatient (BNVA) | payer OTHER, SELFPAY | PROVIDERS: PCP Podiatrist Foot & Ankle Surgery; Visit Provider Nurse Practitioner Family | DX: G57.91 Unspecified mononeuropathy of right lower limb (principal); G89.29 Other chronic pain; M25.571 Pain in right ankle and joints of right foot; M19.071 Primary osteoarthritis, right ankle and foot | CPT/HCPCS: 99212 ==

== ENCOUNTER 2023-08-15 06:19 | Outpatient (REF) | payer OTHER, SELFPAY | END 2023-08-15 06:20 | disposition home or self-care (01) | LOC: CF 06:19 | PROVIDERS: Visit Provider Internal Medicine | DX: G57.91 Unspecified mononeuropathy of right lower limb (principal); M25.571 Pain in right ankle and joints of right foot; G89.29 Other chronic pain | CPT/HCPCS: 64555; C1778 ==

== ENCOUNTER 2023-08-15 09:44 | Outpatient (AMB) | payer OTHER, SELFPAY ==
--- NOTE | 2023-08-15 10:48 | MHC.OFFVIS ---
Vital Signs 08/15/23 11:11 08/15/23 11:12 Height 6 ft 4 in Weight 230 lb BMI 28.0 BP 140/82 H 138/84 Blood Pressure Location Lt brachial Lt brachial Position Sitting Sitting Respiration 20 18 Pulse 94 86 Pulse Source Pulse Oximeter Pulse Oximeter Pulse Oximetry (%) 98 97 Oxygen Delivery Method Room Air Room Air Comment Pre-Op Post-Op Intake Visit Reasons: right sciatic Sprint Allergies No Known Allergies Allergy (Verified 08/23/23 10:40) HPI HPI right sciatic Sprint: Details: Patient presents for scheduled procedure. Denies any recent cough, cold, infection, fever or other significant changes in medical history since last office visit. [facility] Medical History Bipolar 2 disorder ADHD Right ankle pain Closed nondisplaced fracture of neck of talus Surgical History History of ankle surgery History of surgery Family History Mother No problems noted. Father Prostate cancer Heart disease Social History Household Members: Spouse and Children Alcohol intake: current Alcohol intake frequency: holidays/special occasions only Patient Tobacco Use Status: Never used Tobacco Current occupational status: unemployed Physical Exam Vital Signs: Last Vital Signs Pulse 86 08/15/23 11:12 Resp 18 08/15/23 11:12 BP 138/84 08/15/23 11:12 Pulse Ox 97 08/15/23 11:12 Oxygen Delivery Method Room Air 08/15/23 11:12 BMI result Body Mass Index 28.0 Office Procedures Details: Peripheral Nerve Stimulation Temporary Lead Placement, Ultrasound-Guided, Sciatic Nerve, Right ? After the risks, benefits and alternatives were discussed with the patient and informed consentwas obtained, patient was placed in the supine position and padded to foster comfort. Appropriate skin and bony landmarks were identified, and pertinent vascular structures were located. The skin overlying the needle entry site was prepped and draped in sterile fashion. Ultrasound was used to identify the popliteal artery and the sciatic nerve, proximal to the popliteal fossa. After identifying and marking the intended target along the course of the sciatic nerve, the skin around the planned entry point and the subcutaneous tissues Were injected with local anesthetic. An introducer needle and stimulating probe were assembled, inserted and advanced along the intended course of the sciatic nerve in proximity to the bifurcation into the peroneal and the tibial components, taking care to maintain the proper depth of insertion as the introducer was advanced under ultrasound guidance. The introducer needle was delivered to a location in proximity to the nerve taking care not to puncture the popliteal artery or the vein. The needle was delivered in proximity to the tibial component of the sciatic nerve. Multiple stimulation parameters were used to deliver stimulation to the sciatic nerve in concert with stimulating at multiple positions around the nerve. Nerve target acquisition was confirmed noting generation of sensory and mild motor effects (paresthesia, muscle tension, etc) in the posterior leg and ankle; corresponding to the distribution of the sciatic nerve. Various electrical parameter combinations were tested, and the lead location was adjusted (physically relocated under ultrasound guidance) until the patient indicated ankle paresthesia and tension overlapping the distribution of the patient?s typical region of pain. The stimulating probe was removed from the introducer and a percutaneous lead was guided through the needle and delivered to a location in similar proximity to the nerve. Final location was verified with electrical stimulation and documented. The introducer needle was removed, and the exposed end of the percutaneous lead was attached to an external stimulator unit. Various electrical parameter combinations were again tested until the patient indicated paresthesia and muscle tension overlapping the distribution of the patient?s typical region of pain. After confirming that lead impedance was in the normal range, the external unit was detached, the needle was removed, and the lead was anchored at the skin. The lead was threaded into the connector block and electrical continuity and desired patient response was confirmed. The connector block was attached to the external stimulator unit. The site was covered with a sterile occlusive dressing. A final ultrasound image was taken to document final placement. The patient was observed for stability of vital signs and comfort. Sprint PNS Device: Sprint PNS Device [id number] Percutaneous Peripheral Neuroelectrode Procedure: 29894 - Percutaneous Peripheral Neuroelectrode Procedure code (CPT) selection complete Office Meds lidocaine (PF) 50 mg/5 mL (1 %) injection syringe Performing Provider: Kita Valadez APRN, YOLI Performing Location: 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 Patient tolerated procedure well and was discharged home in stable condition with discharge instructions. All questions were answered. We will follow-up via telephone or in clinic to assess response to therapy. A follow-up appointment was made during today's visit. 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 08/15/23 12/20/24
[2023-08-15 11:11] VITALS: BP 140/82; PULSE 94; RESP 20; O2SAT 98; BMI 28.0
[2023-08-15 11:12] VITALS: BP 138/84; PULSE 86; RESP 18; O2SAT 97
== END 2023-08-15 11:13 | disposition home or self-care (01) ==
LOC: HO.PMCPRC 09:44
PROVIDERS: PCP Podiatrist Foot & Ankle Surgery; Visit Provider Internal Medicine
DX: G57.91 Unspecified mononeuropathy of right lower limb (principal); M25.571 Pain in right ankle and joints of right foot
CPT/HCPCS: 64555

== ENCOUNTER 2023-08-23 10:27 | Outpatient (AMB) | payer OTHER, SELFPAY ==
--- NOTE | 2023-08-23 10:40 | MHC.OFFVIS ---
Vital Signs 08/23/23 10:41 Height 6 ft Weight 230 lb BMI 31.2 BP 129/85 Blood Pressure Location Lt brachial Position Sitting Respiration 16 Pulse 102 H Pulse Source Pulse Oximeter Pulse Oximetry (%) 98 Oxygen Delivery Method Room Air Intake Visit Reasons: s/p right sciatic Sprint (Monet Pt) Allergies No Known Allergies Allergy (Verified 08/23/23 10:40) HPI Comments Details: Martin is a very pleasant 33-year-old male who presents back to the office today for follow-up, 1 month status post right sciatic nerve sprint PNS placement. Patient reports 50% pain relief after one-week with improvement in functional mobility. He denies any untoward effects Stimulation is currently set at 80, he is titrating as tolerated without difficulty. Reports he has been in close contact with the Sprint sales representative girls' apparel to manage device Prior to placement patient reports right ankle pain worse with ambulation. Now he is able to ambulate without significant pain and feels that this device is improving his activity Past Procedures: 08/15/23: Right sciatic nerve sprint PNS: 50% pain relief after 1 week 06/27/23: Right sciatic nerve Sprint removal-minimal to no pain relief 05/01/23: Right sciatic nerve Sprint PNS lead placement-minimal pain relief 02/21/23: Right ankle steroid injection-0% pain relief Prior visit with Monet Harvey NP: Patient presents today for Right Sciatic Nerve Sprint removal. Patient reports minimal to no pain relief since procedure especially for the past one month when he noticed that lead was partially pulled out. He met with Sprint rep in office last month and via phone several times. Patient reports no significant improvement in his daily activities and functioning, mobility, social interactions and sleep despite several adjustments. Patient did not notify our office when he notice lead was partially pulled out. We discussed [employer] Revision today to obtain intended coverage for his chronic right ankle pain. Patient will review this with his family and notify our office of his decision. He is looking to return to work and also considers to undergo functional capacity assessment. Denies any recent cough, cold, infection, fever or other significant changes in medical history since last office visit. The dressing was removed today. Leads insertion sites look clean, dry, intact, no redness, no swelling, no pathological discharge. The lead appears to be partially pulled out. Area was cleansed with Chloraprep, lead pulled with tip intact. Area was cleansed again with Chloraprep, applied Bacitracin and dry sterile dressing. PRIOR: Patient is a pleasant 31 years old male who presents with right ankle pain that he attributes to work related injury on 11/21/21 where he had his leg rolled over by a skid steer tractor and have undergone right foot and ankle surgery for closed nondisplaced fracture of neck of right talus and continues to present with symptoms of injury sequelae. This is Workers Comp case #[id number] and patient presents with his case management assistant Irena Wright from [employer] phone fax . 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 After his decompression surgery of the ankle joint, the patient reports he was immobile for 3 months. Patient recently moved to [place] and has been followed by podiatry surgeon, Dr. Dang who referred patient to our office for potential treatment of complex regional pain syndrome. Per referral notes, most recent MRI study findings showed no signs of avascular necrosis, no acute fracture and mild thinning of tibiotalar articulating cartilage. Full MRI report is not available for review today. We will send a request for a complete MRI report to evaluate for any tissue changes typical of CRPS. Patient denies any fever, weight changes, joint swelling, muscle pain, back pain, rash, itching, skin color changes, hyperalgesia, bowel or bladder incontinence, or saddle anesthesia. Patient reports his right ankle pain is reproducible with weight bearing and cold weather changes. He rates his average pain at 3-4/10. Pain is described as intermittent aching, stabbing, sharp, tingling, pins and needles, shooting and dullness. He presents with localized pain, numbness and tingling upon weight bearing or prolonged standing in the projection of medial malleolus and talus. Patient reports RLE weakness and severe pain with prolonged walking with occasional tripping and falling. Pain relieved with rest and elevation. Patient has intact pulses and capillary refills bilaterally, no edema. Denies skin color or texture changes, sweating of right ankle or foot, stiffness, localized hyperalgesia or allodynia. No temperature differences between bilateral lower extremities. Patient demonstrates 5/5 strength of quadriceps bilaterally as well as flexion/dorsiflexion of bilateral feet against resistance with mild decreased ROM of right ankle with dorsiflexion. No redness or tenderness noted in the projection of the healed scar and its surrounding area. Patient reports pain has been affecting his daily activities, walking, social interactions and quality of life. Denies difficulty sleeping or maintaining sleep. Patient reports PT was helpful while living in [place] and more recently he has been using compound topical cream with partial relief of pain. Patient denies previous cortisone injections, Tylenol, NSAIDs, TENS unit or orthotics. He reports a past history of opioid addiction and avoids taking oral medications for this reason. Patient is wearing tight fitting pro keds style shoes of his regular size in both feet. Ambulates with mildly antalgic gait with slight limping without assistive devices. Patient reports he remains out of work due to significant pain with weight bearing. He does not drive due to chronic right ankle pain and weakness with dorsiflexion. [facility] Medical History Bipolar 2 disorder ADHD Right ankle pain Closed nondisplaced fracture of neck of talus Surgical History History of ankle surgery History of surgery Family History Mother No problems noted. Father Prostate cancer Heart disease Social History Household Members: Spouse and Children Alcohol intake: current Alcohol intake frequency: holidays/special occasions only Patient Tobacco Use Status: Never used Tobacco Current occupational status: unemployed Review of Systems Const All systems reviewed & are unremarkable except as noted in HPI and below Physical Exam Vital Signs: Last Vital Signs Pulse 102 H 08/23/23 10:41 Resp 16 08/23/23 10:41 BP 129/85 08/23/23 10:41 Pulse Ox 98 08/23/23 10:41 Oxygen Delivery Method Room Air 08/23/23 10:41 BMI result Body Mass Index 31.2 General: awake, alert, oriented. Answers questions appropriately. Fully engaged in examination. Skin: warm, dry, intact HEENT: Normocephalic. Hearing intact. Cardiac: External chest normal in appearance. Respiratory: No cough, audible wheezing or stridor. Abdomen: without gross distension. MS: No obvious swelling or deformities. Neurological: Oriented to person, place, time and situation. Thought process intact. No gait abnormalities appreciated. Psychiatric: Appropriate mood and affect. Good judgment and insight. Sprint dressing change: Existing dressing removed, Area cleansed with chloraprep. Site dry, clean without redness, swelling, warmth, bruising or drainage. Lead secure device removed. Area cleansed again with chloraprep, once dry skin barrier protectant wipe applied. New lead secure device applied, tegaderm applied. Patient tolerated procedure well. Assessment & Plan Assessment & Plan (1) Right ankle pain: Code(s): M25.571 - Pain in right ankle and joints of right foot Category: Medical Qualifiers: Chronicity: chronic Qualified Code(s): M25.571 - Pain in right ankle and joints of right foot; G89.29 - Other chronic pain (2) Neuropathy of right lower extremity: Code(s): G57.91 - Unspecified mononeuropathy of right lower limb Category: Medical (3) Osteoarthritis of ankle, right: Code(s): M19.071 - Primary osteoarthritis, right ankle and foot Category: Medical Qualifiers: Osteoarthritis type: post-traumatic Qualified Code(s): M19.171 - Post-traumatic osteoarthritis, right ankle and foot Plan Martin presented back to the office today for follow-up, 1 week status post right sciatic nerve Sprint placement Patient tolerating the device well. He is in close contact with the sprint rep and adjusting stimulation as tolerated. Dressing was changed today, as per above Work note provided to patient and his workman's comp case management assistant Patient requests weekly dressing changes in our office. All questions and concerns were answered, patient agrees with the plan. Follow-up in 1 week for dressing change, sooner if needed.
[2023-08-23 10:41] VITALS: BP 129/85; PULSE 102; RESP 16; O2SAT 98; BMI 31.2
== END 2023-08-23 11:00 | disposition home or self-care (01) ==
PROVIDERS: PCP Podiatrist Foot & Ankle Surgery; Visit Provider Registered Nurse Emergency
DX: M25.571 Pain in right ankle and joints of right foot (principal); G89.29 Other chronic pain; G57.91 Unspecified mononeuropathy of right lower limb; M19.171 Post-traumatic osteoarthritis, right ankle and foot
CPT/HCPCS: 99024

== ENCOUNTER → 2023-08-23 10:27 | Outpatient (BNVA) | payer OTHER, SELFPAY | PROVIDERS: PCP Podiatrist Foot & Ankle Surgery; Visit Provider Registered Nurse Emergency | DX: G89.29 Other chronic pain (principal); M25.571 Pain in right ankle and joints of right foot; G57.91 Unspecified mononeuropathy of right lower limb; M19.171 Post-traumatic osteoarthritis, right ankle and foot; T14.90XS Injury, unspecified, sequela; Z98.890 Other specified postprocedural states | CPT/HCPCS: 99212 ==

== ENCOUNTER → 2023-08-30 10:25 | Outpatient (BNVA) | payer OTHER, SELFPAY | PROVIDERS: PCP Podiatrist Foot & Ankle Surgery; Visit Provider Registered Nurse Emergency ==

== ENCOUNTER 2023-09-20 10:23 | Outpatient (AMB) | payer OTHER, SELFPAY ==
--- NOTE | 2023-09-20 10:25 | A.OFFVIS_ITS ---
Vital Signs 3 09/20/23 10:28 Height 6 ft 4 in Weight 244 lb 8 oz BMI 29.8 BP 141/95 H Blood Pressure Location Rt brachial Position Sitting Pulse 101 H Pulse Source Pulse Oximeter Pulse Oximetry (%) 100 Oxygen Delivery Method Room Air Intake Visit Reasons: 1 Month Follow Up Intake Note: Pain today 1.09/12 Nocturnist Physician Required: No Accompanied by: Workers Comp Materials Associate Allergies No Known Allergies Allergy (Verified 09/20/23 10:29) HPI Comments Details: Patient presents today for Sprint dressing change and follow-up, status post right sciatic nerve sprint PNS placement on 08/15/23. Patient reports 80-85% pain relief with improvement in functional mobility, sleep and social interactions. Patient denies any untoward effects with device use. Stimulation is currently set at 80. Patient reports p rior to placement of Sprint device, right ankle pain was worse with ambulation. He occasionally gets increased pain with prolonged ambulation but is content how much Sprint is improving his daily activities. Dressing site was without any signs of infection or pathological discharge. Patient presented with mild redness around the dressing with Tegaderm. No redness at lead insertion site. We changed dressing with hypoallergenic DSD today and provided patient with extra supplies for dressing changes at home. Denies any recent cough, cold, infection, fever, any significant changes in her medical history, medications or recent hospitalizations. Past Procedures: 08/15/23: Right sciatic nerve sprint PNS: 50% pain relief after 1 week 06/27/23: Right sciatic nerve Sprint removal-minimal to no pain relief 05/01/23: Right sciatic nerve Sprint PNS lead placement-minimal pain relief 02/21/23: Right ankle steroid injection-0% pain relief Prior visit with Monet Havrey NP: Patient presents today for Right Sciatic Nerve Sprint removal. Patient reports minimal to no pain relief since procedure especially for the past one month when he noticed that lead was partially pulled out. He met with Sprint rep in office last month and via phone several times. Patient reports no significant improvement in his daily activities and functioning, mobility, social interactions and sleep despite several adjustments. Patient did not notify our office when he notice lead was partially pulled out. We discussed Sprint Revision today to obtain intended coverage for his chronic right ankle pain. Patient will review this with his family and notify our office of his decision. He is looking to return to work and also considers to undergo functional capacity assessment. Denies any recent cough, cold, infection, fever or other significant changes in medical history since last office visit. The dressing was removed today. Leads insertion sites look clean, dry, intact, no redness, no swelling, no pathological discharge. The lead appears to be partially pulled out. Area was cleansed with Chloraprep, lead pulled with tip intact. Area was cleansed again with Chloraprep, applied Bacitracin and dry sterile dressing. PRIOR: Patient is a pleasant 31 years old male who presents with right ankle pain that he attributes to work related injury on 11/21/21 where he had his leg rolled over by a skid steer tractor and have undergone right foot and ankle surgery for closed nondisplaced fracture of neck of right talus and continues to present with symptoms of injury sequelae. This is Workers Comp case #[id number] and patient presents with his case work aide Irena Wright from [employer] phone fax . 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 After his decompression surgery of the ankle joint, the patient reports he was immobile for 3 months. Patient recently moved to [place] and has been followed by podiatry surgeon, Dr. Dang who referred patient to our office for potential treatment of complex regional pain syndrome. Per referral notes, most recent MRI study findings showed no signs of avascular necrosis, no acute fracture and mild thinning of tibiotalar articulating cartilage. Full MRI report is not available for review today. We will send a request for a complete MRI report to evaluate for any tissue changes typical of CRPS. Patient denies any fever, weight changes, joint swelling, muscle pain, back pain, rash, itching, skin color changes, hyperalgesia, bowel or bladder incontinence, or saddle anesthesia. Patient reports his right ankle pain is reproducible with weight bearing and cold weather changes. He rates his average pain at 3-4/10. Pain is described as intermittent aching, stabbing, sharp, tingling, pins and needles, shooting and dullness. He presents with localized pain, numbness and tingling upon weight bearing or prolonged standing in the projection of medial malleolus and talus. Patient reports RLE weakness and severe pain with prolonged walking with occasional tripping and falling. Pain relieved with rest and elevation. Patient has intact pulses and capillary refills bilaterally, no edema. Denies skin color or texture changes, sweating of right ankle or foot, stiffness, localized hyperalgesia or allodynia. No temperature differences between bilateral lower extremities. Patient demonstrates 5/5 strength of quadriceps bilaterally as well as flexion/dorsiflexion of bilateral feet against resistance with mild decreased ROM of right ankle with dorsiflexion. No redness or tenderness noted in the projection of the healed scar and its surrounding area. Patient reports pain has been affecting his daily activities, walking, social interactions and quality of life. Denies difficulty sleeping or maintaining sleep. Patient reports PT was helpful while living in [place] and more recently he has been using compound topical cream with partial relief of pain. Patient denies previous cortisone injections, Tylenol, NSAIDs, TENS unit or orthotics. He reports a past history of opioid addiction and avoids taking oral medications for this reason. Patient is wearing tight fitting pro keds style shoes of his regular size in both feet. Ambulates with mildly antalgic gait with slight limping without assistive devices. Patient reports he remains out of work due to significant pain with weight bearing. He does not drive due to chronic right ankle pain and weakness with dorsiflexion. [facility] Medical History Bipolar 2 disorder ADHD Right ankle pain Closed nondisplaced fracture of neck of talus Surgical History History of ankle surgery History of surgery Family History Mother No problems noted. Father Prostate cancer Heart disease Social History Household Members: Spouse and Children Alcohol intake: current Alcohol intake frequency: holidays/special occasions only Patient Tobacco Use Status: Never used Tobacco Current occupational status: unemployed Review of Systems Const All systems reviewed & are unremarkable except as noted in HPI and below Physical Exam General: Appears afebrile. Alert and oriented. Mood and affect appropriate. Follows and participates in conversation appropriately. Respiratory effort is unlabored. Able to transition from sit to stand unassisted. Ambulates with bilaterally normal heel strike and toe off, except decreased dorsiflexion on right. Lead Insertion Site: Lead insertion sites look clean, dry, intact. No pathological discharge, no swelling, no redness at lead insertion site and no erythema. Mild redness along dressing borders with Tegaderm. Hypoallergenic dressing applied today. Positive paresthesia at right ankle at 80. 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 There was no definite evidence of radiculopathy. 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 Dressing change was done in office today with hypoallergenic dressing due to skin redness with Tegaderm dressing. Extra supplies provided to patient for dressing changes at home. Script provided for Functional Capacity Assessment to be completed at [facility] after 10/21/23. 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 All questions were answered and patient agreed with the plan. Follow up for Sprint removal in October and sooner as needed. 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
[2023-09-20 10:28] VITALS: BP 141/95; PULSE 101; O2SAT 100; BMI 29.8
== END 2023-09-20 10:52 | disposition home or self-care (01) ==
PROVIDERS: PCP Podiatrist Foot & Ankle Surgery; Visit Provider Nurse Practitioner Family
DX: M25.571 Pain in right ankle and joints of right foot (principal); G89.29 Other chronic pain; G57.91 Unspecified mononeuropathy of right lower limb; M19.171 Post-traumatic osteoarthritis, right ankle and foot
CPT/HCPCS: 99213

== ENCOUNTER → 2023-09-20 10:23 | Outpatient (BNVA) | payer OTHER, SELFPAY | PROVIDERS: PCP Podiatrist Foot & Ankle Surgery; Visit Provider Nurse Practitioner Family | DX: G89.29 Other chronic pain (principal); M25.571 Pain in right ankle and joints of right foot; G57.91 Unspecified mononeuropathy of right lower limb; M19.171 Post-traumatic osteoarthritis, right ankle and foot; T14.90XS Injury, unspecified, sequela | CPT/HCPCS: 99212 ==

== ENCOUNTER 2023-10-07 11:38 | Outpatient (AMB) | payer OTHER, SELFPAY ==
--- NOTE | 2023-10-07 11:43 | A.OFFVIS_ITS ---
Vital Signs 3 10/07/23 11:47 Height 6 ft 4 in Weight 244 lb BMI 29.7 BP 128/94 H Blood Pressure Location Rt brachial Position Sitting Pulse 105 H Pulse Source Pulse Oximeter Pulse Oximetry (%) 99 Oxygen Delivery Method Room Air Intake Visit Reasons: SPRINT CHECKUP Intake Note: Pain today 05/15 Preschool Teacher'S Assistant Required: No Accompanied by: Spouse Allergies No Known Allergies Allergy (Verified 10/07/23 11:48) HPI Comments Details: Patient presents today for Sprint removal. This was scheduled for this 10/11/23. However, patient reports he noticed lead was partially pulled and he noted some redness and pus discharge with most recent dressing change. He continues to endorse 80-90% ongoing pain relief with improvement in functional mobility, sleep and social interactions. The dressing was removed today. Leads insertion site is dry, intact, no swelling, with mild redness and at the insertion site, lead appears about one inch out. Area was cleansed with Chloraprep. Lead pulled with tip intact, small amount of serous discharge upon removal. The area was cleansed again with Chloraprep, applied Bacitracin and covered it with dry sterile gauze. Denies any recent cough, cold, infection, fever, any significant changes in her medical history, medications or recent hospitalizations. Past Procedures: 10/07/23: Right sciatic nerve Sprint PNS removal: ongoing 80-90% pain relief 08/15/23: Right sciatic nerve Sprint PNS: 50% pain relief after 1 week 06/27/23: Right sciatic nerve Sprint removal-minimal to no pain relief 05/01/23: Right sciatic nerve Sprint PNS lead placement-minimal pain relief 02/21/23: Right ankle steroid injection-0% pain relief Prior visit with Monet Harvey NP: Patient presents today for Right Sciatic Nerve Sprint removal. Patient reports minimal to no pain relief since procedure especially for the past one month when he noticed that lead was partially pulled out. He met with [employer] rep in office last month and via phone several times. Patient reports no significant improvement in his daily activities and functioning, mobility, social interactions and sleep despite several adjustments. Patient did not notify our office when he notice lead was partially pulled out. We discussed Sprint Revision today to obtain intended coverage for his chronic right ankle pain. Patient will review this with his family and notify our office of his decision. He is looking to return to work and also considers to undergo functional capacity assessment. Denies any recent cough, cold, infection, fever or other significant changes in medical history since last office visit. The dressing was removed today. Leads insertion sites look clean, dry, intact, no redness, no swelling, no pathological discharge. The lead appears to be partially pulled out. Area was cleansed with Chloraprep, lead pulled with tip intact. Area was cleansed again with Chloraprep, applied Bacitracin and dry sterile dressing. PRIOR: Patient is a pleasant 31 years old male who presents with right ankle pain that he attributes to work related injury on 11/21/21 where he had his leg rolled over by a skid steer tractor and have undergone right foot and ankle surgery for closed nondisplaced fracture of neck of right talus and continues to present with symptoms of injury sequelae. This is Workers Comp case #[id number] and patient presents with his manager case management Irena Wright from [employer] phone fax . 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 After his decompression surgery of the ankle joint, the patient reports he was immobile for 3 months. Patient recently moved to [place] and has been followed by podiatry surgeon, Dr. Dang who referred patient to our office for potential treatment of complex regional pain syndrome. Per referral notes, most recent MRI study findings showed no signs of avascular necrosis, no acute fracture and mild thinning of tibiotalar articulating cartilage. Full MRI report is not available for review today. We will send a request for a complete MRI report to evaluate for any tissue changes typical of CRPS. Patient denies any fever, weight changes, joint swelling, muscle pain, back pain, rash, itching, skin color changes, hyperalgesia, bowel or bladder incontinence, or saddle anesthesia. Patient reports his right ankle pain is reproducible with weight bearing and cold weather changes. He rates his average pain at 3-4/10. Pain is described as intermittent aching, stabbing, sharp, tingling, pins and needles, shooting and dullness. He presents with localized pain, numbness and tingling upon weight bearing or prolonged standing in the projection of medial malleolus and talus. Patient reports RLE weakness and severe pain with prolonged walking with occasional tripping and falling. Pain relieved with rest and elevation. Patient has intact pulses and capillary refills bilaterally, no edema. Denies skin color or texture changes, sweating of right ankle or foot, stiffness, localized hyperalgesia or allodynia. No temperature differences between bilateral lower extremities. Patient demonstrates 5/5 strength of quadriceps bilaterally as well as flexion/dorsiflexion of bilateral feet against resistance with mild decreased ROM of right ankle with dorsiflexion. No redness or tenderness noted in the projection of the healed scar and its surrounding area. Patient reports pain has been affecting his daily activities, walking, social interactions and quality of life. Denies difficulty sleeping or maintaining sleep. Patient reports PT was helpful while living in [place] and more recently he has been using compound topical cream with partial relief of pain. Patient denies previous cortisone injections, Tylenol, NSAIDs, TENS unit or orthotics. He reports a past history of opioid addiction and avoids taking oral medications for this reason. Patient is wearing tight fitting pro keds style shoes of his regular size in both feet. Ambulates with mildly antalgic gait with slight limping without assistive devices. Patient reports he remains out of work due to significant pain with weight bearing. He does not drive due to chronic right ankle pain and weakness with dorsiflexion. REPLACED BY [facility] Medical History Bipolar 2 disorder ADHD Right ankle pain Closed nondisplaced fracture of neck of talus Surgical History History of ankle surgery History of surgery Family History Mother No problems noted. Father Prostate cancer Heart disease Social History Household Members: Spouse and Children Alcohol intake: current Alcohol intake frequency: holidays/special occasions only Patient Tobacco Use Status: Never used Tobacco Current occupational status: unemployed Review of Systems Const All systems reviewed & are unremarkable except as noted in HPI and below Physical Exam General: Appears afebrile. Alert and oriented. Mood and affect appropriate. Follows and participates in conversation appropriately. Respiratory effort is unlabored. Able to transition from sit to stand unassisted. Ambulates with bilaterally normal heel strike and toe off, except decreased dorsiflexion on right. Lead Insertion Site: No erythema or swelling. Mild redness at the insertion site. Lead pulled with tip intact. Mild serous discharge noted with removal of lead. 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 There was no definite evidence of radiculopathy. 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 Due to patient's concerns for recent partial lead pull with lead site concerns, we removed it today instead of planned visit for 10/11/23. Patient will continue to monitor the longevity of Sprint PNS system. Patient rates his pain today at 1/10. Pending Functional Capacity Assessment. Script was provided at previous visit. All questions were answered and patient agreed with the plan. Follow up as needed. 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
[2023-10-07 11:47] VITALS: BP 128/94; PULSE 105; O2SAT 99; BMI 29.7
== END 2023-10-07 12:04 | disposition home or self-care (01) ==
LOC: HO.PMC 11:38
PROVIDERS: PCP Podiatrist Foot & Ankle Surgery; Visit Provider Nurse Practitioner Family
DX: M25.571 Pain in right ankle and joints of right foot (principal); G89.29 Other chronic pain; G57.91 Unspecified mononeuropathy of right lower limb; M19.171 Post-traumatic osteoarthritis, right ankle and foot
CPT/HCPCS: 99213

== ENCOUNTER → 2023-10-07 11:38 | Outpatient (BNVA) | payer OTHER, SELFPAY | PROVIDERS: PCP Podiatrist Foot & Ankle Surgery; Visit Provider Nurse Practitioner Family | DX: G89.29 Other chronic pain (principal); M25.571 Pain in right ankle and joints of right foot; G57.91 Unspecified mononeuropathy of right lower limb; M19.171 Post-traumatic osteoarthritis, right ankle and foot | CPT/HCPCS: 99212 ==

== ENCOUNTER 2024-02-28 12:56 | Outpatient (REF) | payer OTHER, SELFPAY | END 2024-02-28 12:57 | disposition home or self-care (01) | LOC: HO.XRAY 12:56 | PROVIDERS: Visit Provider Nurse Practitioner Family | DX: M25.571 Pain in right ankle and joints of right foot (principal); G89.29 Other chronic pain; M19.171 Post-traumatic osteoarthritis, right ankle and foot | CPT/HCPCS: 73610 ==